=== PATIENT | female | born 1970 | race Two or more races ===

== ENCOUNTER 2017-10-10 05:38 | Emergency (ER) | payer OTHER ==
[~2017-10-10] VITALS: Ht 167.6 cm; Wt 99.8 kg
[~2017-10-10 05:38] MED LIST: CEFADROXIL500 MG PO; PEPCID20 MG PO; ZOFRAN4 MG SL
[2017-10-10] MEDS ORDERED: KETO10TA2 PO (08:33)
== END 2017-10-10 08:47 | disposition home or self-care (01) ==
LOC: ER 05:38
DX: S83.8X1A Sprain of other specified parts of right knee, initial encounter (principal); W01.0XXA Fall on same level from slipping, tripping and stumbling without subsequent striking against object, initial encounter; Y93.89 Activity, other specified; Y92.091 Bathroom in other non-institutional residence as the place of occurrence of the external cause; Y99.8 Other external cause status